=== PATIENT | female | born 1995 | race Caucasian/White ===

== ENCOUNTER 2017-01-14 19:53 | Inpatient (IN) | payer MEDICAID ==
[2017-01-14] VITALS (8 sets, daily range): BP systolic 137–160; BP diastolic 81–96; PULSE 65–81; TEMP 97.9
[~2017-01-14] VITALS: Ht 157.5 cm; Wt 97.3 kg
[2017-01-14 22:59] LABS: COLLECTION METHOD CATHETER
[2017-01-14 23:04] LABS: BASO % 0.3 % (0.0-2.0); EOS % 0.4 % (0-4.0); GRAN # 7.7 (1.4-6.5); GRAN % 71.7 % (42.2-75.2); LYMPH % 18.7 % (20.0-51.0); MEAN CELL VOLUME 85 fl (80.0-100.0); MEAN CORPUSCULAR HGB CONC 31 g/dl (33.0-37.0); MEAN PLATELET VOLUME 11.3 fl (7.4-10.4); MONO # 0.9 (0.1-0.6); MONO % 8.2 % (1.7-9.3); PLATELET COUNT 221 K/mm3 (130-400); RED BLOOD COUNT 3.82 M/mm3 (4.10-5.30); WHITE BLOOD COUNT 10.7 K/mm3 (4.8-10.8)
[2017-01-14 23:06] LABS: HEMATOCRIT 32.6 % (37.0-47.0); HEMOGLOBIN 10.2 g/dl (12.5-16.0); MEAN CORPUSCULAR HEMOGLOBIN 27 pg (27.0-31.0)
[2017-01-14 23:15] LABS: MUCOUS Present /lpf; PH 6 (5-8); URINE APPEARANCE Clear; URINE BACTERIA Rare /hpf; URINE BILIRUBIN Negative (NEGATIVE); URINE BLOOD 1+ (NEGATIVE); URINE COLOR Straw; URINE GLUCOSE Negative (NEGATIVE); URINE KETONE Negative (NEGATIVE); URINE LEUKOCYTE ESTERASE Negative (NEGATIVE); URINE PROTEIN(semi-quant) 3+ (NEGATIVE); URINE UROBILINOGEN Negative (NEGATIVE)
[2017-01-14 23:18] LABS: ADJUSTED CALCIUM 10.1 mg/dL (8.4-10.2); ALBUMIN 3.2 gm/dL (3.5-5.0); BILIRUBIN,TOTAL 0.3 mg/dL (0.0-1.0); CALCIUM 9.5 mg/dL (8.4-10.2); CREATININE, serum 0.65 mg/dL (0.52-1.25); POTASSIUM 4.1 mmol/L (3.4-5.0); TOTAL PROTEIN 6.3 gm/dL (6.4-8.2)
[2017-01-15] VITALS (32 sets, daily range): BP systolic 123–182; BP diastolic 66–100; PULSE 59–99; TEMP 98–98.6
[2017-01-16 00:30] VITALS: BP 124/68; PULSE 82
[2017-01-16 06:55] LABS: HEMATOCRIT 23.5 % (37.0-47.0); HEMOGLOBIN 7.2 g/dl (12.5-16.0)
[2017-01-16 07:00] VITALS: BP 126/76; PULSE 76; TEMP 98.1
[2017-01-16 16:01] VITALS: BP 122/68; PULSE 72; TEMP 98.1
[2017-01-16 22:00] VITALS: BP 143/96; PULSE 94; TEMP 98.6
[2017-01-17 07:19] LABS: HEMATOCRIT 23.3 % (37.0-47.0); HEMOGLOBIN 7.2 g/dl (12.5-16.0)
[2017-01-17 08:00] VITALS: BP 146/83; PULSE 79; TEMP 98.3
[2017-01-17] MEDS ORDERED: FERROUS SU325 MG/TAB PO (08:35)
[2017-01-17] MEDS ORDERED: IBU600 MG PO (08:36)
[2017-01-17] MEDS ORDERED: PERCOCET 325 MG1 TA2 PO (08:36)
[2017-01-17 16:30] VITALS: BP 150/92; PULSE 85; TEMP 97.8
[2017-01-17 19:10] VITALS: BP 143/86; PULSE 104; TEMP 99.2
[2017-01-17 23:00] VITALS: BP 144/88; PULSE 82; TEMP 98.4
[2017-01-18 03:00] VITALS: BP 142/76; PULSE 90; TEMP 98.1
[2017-01-18] MEDS ORDERED: PROCARDIA XL 3030 MG PO (06:25)
[2017-01-18 07:10] VITALS: BP 135/77; PULSE 82; TEMP 98.4
== END 2017-01-18 10:25 | disposition home or self-care (01) | DRG 765 ==
LOC: LDRO 19:53 → LDR 01-15 → OB 01-15
PROVIDERS: Obstetrics & Gynecology
PROC: 10D00Z1 Extraction of Products of Conception, Low, Open Approach (ICD-10-PCS; principal; 2017-01-15)
PROC: 0U950ZZ Drainage of Right Fallopian Tube, Open Approach (ICD-10-PCS; 2017-01-15)
PROC: 3E033VJ Introduction of Other Hormone into Peripheral Vein, Percutaneous Approach (ICD-10-PCS; 2017-01-15)
DX: O14.04 Mild to moderate pre-eclampsia, complicating childbirth (principal); D62 Acute posthemorrhagic anemia; O76 Abnormality in fetal heart rate and rhythm complicating labor and delivery; O99.02 Anemia complicating childbirth; O34.83 Maternal care for other abnormalities of pelvic organs, third trimester; N83.8 Other noninflammatory disorders of ovary, fallopian tube and broad ligament; O45.93 Premature separation of placenta, unspecified, third trimester; Z3A.38 38 weeks gestation of pregnancy; Z37.0 Single live birth
CPT/HCPCS: J0690; J1885; J2370; J2400; J2405; J2540; J2590; J2795; J3010; J7120